=== PATIENT | female | born 1955 | race Caucasian/White ===

== ENCOUNTER 2019-12-21 15:33 | Observation (INO) | payer BC, MEDICARE, OTHER ==
--- NOTE | 2019-12-21 15:49 | EDM.PDOC ---
ED HPI GENERAL MEDICAL PROBLEM - General Chief Complaint: Chest Pain Stated Complaint: CHEST PAIN Time Seen by Provider: 12/21/19 15:49 Source of Information: Reports: Patient History Limitations: Reports: No Limitations - History of Present Illness INITIAL COMMENTS - FREE TEXT/NARRATIVE: This 64 year old female is admitted to the ED with a chief complaint of chest pain (squeezing) in her left chest for the past two days. She states that the pain last for about 60-90 seconds and comes and goes every 15-20 minutes. She denies any SOB or difficulty breathing. She denies any pain into her arms or jaw. No nausea or vomiting. She denies any other symptoms at time of this evaluation. Onset: Gradual (over two days) Duration: Day(s): (two days) Location: Reports: Chest Quality: Reports: Pressure (and tightness) Severity: Mild (to moderate) Associated Symptoms: Reports: Chest Pain. Denies: Diaphoresis, Nausea/Vomiting , Shortness of Breath - Related Data Allergies Allergy/AdvReac Type Severity Reaction Status Date / Time adhesive Allergy Rash Verified 12/21/19 20:26 latex Allergy Rash Verified 12/21/19 20:26 meperidine [From Demerol] Allergy Rash Verified 12/21/19 20:26 Home Meds: Home Meds Enalapril Maleate [Vasotec] 1.5 tab PO BEDTIME 12/21/19 [History] Metoprolol Tartrate 25 mg PO BEDTIME 12/21/19 [History] Potassium Chloride [Klor-Con 10] 10 meq PO BEDTIME 12/21/19 [History] Rosuvastatin [Crestor] 5 mg PO BEDTIME 12/21/19 [History] hydroCHLOROthiazide [Hydrochlorothiazide] 12.5 mg PO BEDTIME 12/21/19 [History] ED ROS GENERAL - Review of Systems Review Of Systems: See Below Constitutional: Reports: No Symptoms HEENT: Reports: No Symptoms Respiratory: Reports: No Symptoms Cardiovascular: Reports: Chest Pain. Denies: Dyspnea on Exertion, Lightheadedness, Orthopnea, Palpitations Endocrine: Reports: No Symptoms GI/Abdominal: Reports: No Symptoms : Reports: No Symptoms Musculoskeletal: Reports: No Symptoms Skin: Reports: No Symptoms Neurological: Reports: No Symptoms Psychiatric: Reports: No Symptoms ED EXAM, GENERAL - Physical Exam Exam: See Below Exam Limited By: No Limitations General Appearance: Alert, WD/WN, No Apparent Distress Nose: Normal Inspection, Normal Mucosa, No Blood Throat/Mouth: Normal Inspection, Normal Lips, Normal Teeth, Normal Gums, Normal Oropharynx, Normal Voice, No Airway Compromise Head: Atraumatic, Normocephalic Neck: Normal Inspection, Supple, Non-Tender, Full Range of Motion. No: Lymphadenopathy (L), Lymphadenopathy (R) Respiratory/Chest: No Respiratory Distress, Lungs Clear, Normal Breath Sounds, Chest Non-Tender Cardiovascular: Normal Peripheral Pulses, Regular Rate, Rhythm, No Edema, No Gallop, No Murmur, No Rub Peripheral Pulses: 3+: Carotid (L), Carotid (R), Radial (L), Radial (R), Dorsalis Pedis (L), Dorsalis Pedis (R) GI/Abdominal: Normal Bowel Sounds, Soft, Non-Tender, No Organomegaly, No Distention, No Abnormal Bruit, No Mass (Female) Exam: Deferred Rectal (Female) Exam: Deferred Back Exam: Normal Inspection, Full Range of Motion. No: CVA Tenderness (L), CVA Tenderness (R) Extremities: Normal Inspection, Normal Range of Motion, Non-Tender, Normal Capillary Refill Neurological: Alert, Oriented (times 4), CN II-XII Intact, Normal Reflexes Psychiatric: Normal Affect, Normal Mood Skin Exam: Warm, Dry, Intact, Normal Color, No Rash Lymphatic: No Adenopathy Course - Vital Signs Text/Narrative:: I discussed with Dr. Harry this patient records. She has a HEART score of 3. She will be admitted to OBS/TELE. The patient agrees with the admission plan. Last Recorded V/S: Last Vital Signs Temp 97.8 F 12/22/19 03:00 Pulse 58 L 12/22/19 03:00 Resp 18 12/22/19 03:00 BP 126/57 L 12/22/19 03:00 Pulse Ox 97 12/22/19 03:00 - Orders/Labs/Meds Orders: Medication Orders Acetaminophen (Tylenol) 650 mg PO Q4H PRN PRN Reason: Pain (Mild 1-3)/fever Aspirin (Aspirin) 81 mg PO DAILY [facility] Last Admin: 12/21/19 20:06 Dose: 81 mg Enalapril Maleate (Vasotec) 30 mg PO DAILY [facility] Last Admin: 12/21/19 22:56 Dose: 30 mg Hydrochlorothiazide (Hydrochlorothiazide) 12.5 mg PO DAILY [facility] Last Admin: 12/21/19 20:09 Dose: 12.5 mg Metoprolol Tartrate (Lopressor) 25 mg PO BEDTIME [facility] Last Admin: 12/21/19 23:02 Dose: Nitroglycerin (Nitrostat) 0.4 mg SL Q5M PRN PRN Reason: Chest Pain Ondansetron HCl (Zofran Odt) 4 mg PO Q4H PRN PRN Reason: nausea, able to take PO Ondansetron HCl (Zofran) 4 mg IVPUSH Q4H PRN PRN Reason: Nausea Potassium Chloride (Klor-Con 10) 10 meq PO BEDTIME [facility] Last Admin: 12/21/19 21:58 Dose: Not Given Rosuvastatin Calcium (Crestor) 5 mg PO DAILY [facility] Last Admin: 12/21/19 22:55 Dose: 5 mg Labs: Laboratory Tests 12/21/19 12/21/19 12/21/19 Range/Units 15:40 15:40 15:40 WBC 9.02 (4.0-11.0) K/uL RBC 4.78 (4.30-5.90) M/uL Hgb 15.3 (12.0-16.0) g/dL Hct 45.1 (36.0-46.0) % MCV 94.4 (80.0-98.0) fL MCH 32.0 (27.0-32.0) pg MCHC 33.9 (31.0-37.0) g/dL RDW Std Deviation 45.2 (28.0-62.0) fl RDW Coeff of Kayla 13 (11.0-15.0) % Plt Count 218 (150-400) K/uL MPV 9.90 (7.40-12.00) fL Neut % (Auto) 59.1 (48.0-80.0) % Lymph % (Auto) 29.6 (16.0-40.0) % [place] % (Auto) 9.8 (0.0-15.0) % Eos % (Auto) 1.2 (0.0-7.0) % Baso % (Auto) 0.3 (0.0-1.5) % Neut # (Auto) 5.3 (1.4-5.7) K/uL Lymph # (Auto) 2.7 H (0.6-2.4) K/uL [place] # (Auto) 0.9 H (0.0-0.8) K/uL Eos # (Auto) 0.1 (0.0-0.7) K/uL Baso # (Auto) 0.0 (0.0-0.1) K/uL Nucleated RBC % 0.0 /100WBC Nucleated RBCs # 0 K/uL Sodium 145 (136-145) mmol/L Potassium 3.1 L (3.5-5.1) mmol/L Chloride 103 (98-107) mmol/L Carbon Dioxide 31.0 (21.0-32.0) mmol/L BUN 15 (7.0-18.0) mg/dL Creatinine 0.9 (0.6-1.0) mg/dL Est Cr Clr Drug Dosing 50.86 mL/min Estimated GFR (MDRD) > 60.0 ml/min Glucose 91 (74-106) mg/dL Calcium 9.6 (8.5-10.1) mg/dL Total Bilirubin 0.6 (0.2-1.0) mg/dL AST 12 L (15-37) IU/L ALT 40 (14-63) IU/L Alkaline Phosphatase 77 (46-116) U/L Troponin I < 0.050 (0.000-0.056) ng/mL B-Natriuretic Peptide 28 (<100) PG/ML Total Protein 7.4 (6.4-8.2) g/dL Albumin 4.3 (3.4-5.0) g/dL Globulin 3.1 (2.6-4.0) g/dL Albumin/Globulin Ratio 1.4 (0.9-1.6) Meds: Medications Generic Name Dose Route Start Last Admin Trade Name Freq PRN Reason Stop Dose Admin Acetaminophen 650 mg 12/21/19 19:09 Tylenol PO Q4H PRN Pain (Mild 1-3)/fever Aspirin 81 mg 12/21/19 19:30 12/21/19 20:06 Aspirin PO 81 mg DAILY KEON Administration Enalapril Maleate 30 mg 12/21/19 22:00 12/21/19 22:56 Vasotec PO 30 mg DAILY KEON Administration Hydrochlorothiazide 12.5 mg 12/21/19 19:15 12/21/19 20:09 Hydrochlorothiazide PO 12.5 mg DAILY KEON Administration Metoprolol Tartrate 25 mg 12/21/19 22:00 12/21/19 23:02 Lopressor PO Not Given BEDTIME EKON Nitroglycerin 0.4 mg 12/21/19 19:13 Nitrostat SL Q5M PRN Chest Pain Ondansetron HCl 4 mg 12/21/19 19:09 Zofran Odt PO Q4H PRN nausea, able to take PO Ondansetron HCl 4 mg 12/21/19 19:09 Zofran IVPUSH Q4H PRN Nausea Potassium Chloride 10 meq 12/21/19 22:00 12/21/19 21:58 Klor-Con 10 PO Not Given BEDTIME KEON Rosuvastatin Calcium 5 mg 12/21/19 22:00 12/21/19 22:55 Crestor PO 5 mg DAILY KEON Administration Discontinued Medications Generic Name Dose Route Start Last Admin Trade Name Freq PRN Reason Stop Dose Admin Potassium Chloride 40 meq 12/21/19 19:11 12/21/19 20:06 Klor-Con M20 PO 12/21/19 19:12 40 meq ONETIME ONE Administration Departure - Departure Time of Disposition: 18:36 Disposition: Refer to Observation Condition: Good Clinical Impression: Chest pain with low risk for cardiac etiology Sepsis Event Note - Focused Exam Date Exam was Performed: 12/22/19 Time Exam was Performed: 07:48
[2019-12-21 16:22] LABS: BLOOD UREA NITROGEN,BUN 15 mg/dL (7.0-18.0); CHLORIDE,CL 103 mmol/L (98-107); GLUCOSE RANDOM 91 mg/dL (74-106); POTASSIUM,K 3.1 mmol/L (3.5-5.1); SODIUM,NA 145 mmol/L (136-145)
--- NOTE | 2019-12-21 16:43 | CR ---
Chest: Frontal view of the chest was obtained. Comparison: Prior chest x-ray of 07/12/07. Heart size is enlarged. Tortuous thoracic aorta is noted. Lungs are clear with no acute parenchymal change. Bony structures appear grossly intact. Impression: 1. Cardiomegaly. 2. Nothing acute is otherwise seen on frontal chest x-ray. Diagnostic code #2 Study was dictated in MDT
[2019-12-21] MEDS ORDERED: Ondansetron 4 MG/2 ML SDV IVPUSH PRN (19:09)
[2019-12-21] MEDS ORDERED: Acetaminophen 325 MG Tab PO PRN (19:09)
[2019-12-21] MEDS ORDERED: Ondansetron 4 MG Tab.DIS PO PRN (19:09)
[2019-12-21] MEDS ORDERED: Potassium Chloride 20 MEQ Tab.ER PO ONE (19:11)
[2019-12-21] MEDS ORDERED: Nitroglycerin 0.4 MG Tab.SL SL PRN (19:13)
--- NOTE | 2019-12-21 19:22 | PCM.HP.2 ---
H&P History of Present Illness - General Date of Service: 12/21/19 Admit Problem/Dx: Admission Diagnosis/Problem Admission Diagnosis/Problem Chest pain with minimal risk for cardiac etiology Source of Information: Patient History Limitations: Reports: No Limitations - History of Present Illness Initial Comments - Free Text/Narative: 64-year-old female presents with left-sided chest pain that is on and off for the past 2-3 weeks. She has a PMH of HTN. She reports the chest pain is "squeezing" and "pressure-like" in nature. For the past 2 days it seems to be getting more frequent. The pain lasts for approximately 1 minute and then resolves completely but will then reoccur every hour. It is not related to exertion and occurs at rest as well. It is also unrelated to eating. The pain does not radiate anywhere. She reports associated flushing. She has also noticed that her blood pressure has been high lately and SBP at home today was ~ 190. She reports being under a lot of stress lately with trying to sell her home. She denies any fevers, chills, blurry vision, sore throat, cough, SOB, dizziness, sweats, nausea, vomiting, diarrhea, abdominal pain, blood in urine, blood in stool, numbness or tingling in extremities. In the ER, EKG, CXR and CBC were unremarkable. CMP revealed potassium level of 3.1. Initial troponin negative. Patient admitted for further evaluation. 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 Musculoskeletal History: tendonitis in both wrists, meniscus repair - Infectious Disease History Infectious Disease History: Reports: Chicken Pox, Measles, Mumps - Past Surgical History HEENT Surgical History: Reports: Cataract Surgery, Naso-Sinus Surgery Female Surgical History: Reports: Hysterectomy Other Female Surgeries/Procedures: bladder repair, urethra repair Social & Family History - Family History Family Medical History: Noncontributory - Tobacco Use Smoking Status *Q: Never Smoker - Recreational Drug Use Recreational Drug Use: No H&P Review of Systems - Review of Systems: Review Of Systems: Comprehensive ROS is negative, except as noted in HPI. Exam - Exam Exam: See Below - Vital Signs Vital Signs: Last Vital Signs Temp 96.5 F L 12/21/19 18:08 Pulse 59 L 12/21/19 17:56 Resp 18 12/21/19 17:56 BP 118/64 12/21/19 17:56 Pulse Ox 96 12/21/19 17:56 Weight: 190 lb - Exam General: Alert, Oriented, Cooperative, Other (NAD) HEENT: Conjunctiva Clear, EOMI, Hearing Intact, Mucosa Moist & [place], Posterior Pharynx Clear, Pupils Equal, Pupils Reactive Neck: Supple, Trachea Midline Lungs: Clear to Auscultation, Normal Respiratory Effort Cardiovascular: Regular Rate, Regular Rhythm GI/Abdominal Exam: Normal Bowel Sounds, Soft, Non-Tender, No Distention Extremities: Normal Inspection, No Pedal Edema Peripheral Pulses: 2+: Radial (L), Radial (R) Skin: Warm, Dry, Intact Neurological: Cranial Nerves Intact, Reflexes Equal Bilateral, Strength Equal Bilateral, Normal Speech, Normal Tone Neuro Extensive - Mental Status: Alert, Oriented x3, Normal Mood/Affect Psychiatric: Alert, Normal Affect, Normal Mood - Patient Data Lab Results Last 24 hrs: Laboratory Results - last 24 hr 12/21/19 12/21/19 12/21/19 Range/Units 15:40 15:40 15:40 WBC 9.02 (4.0-11.0) K/uL RBC 4.78 (4.30-5.90) M/uL Hgb 15.3 (12.0-16.0) g/dL Hct 45.1 (36.0-46.0) % MCV 94.4 (80.0-98.0) fL MCH 32.0 (27.0-32.0) pg MCHC 33.9 (31.0-37.0) g/dL RDW Std Deviation 45.2 (28.0-62.0) fl RDW Coeff of Kayla 13 (11.0-15.0) % Plt Count 218 (150-400) K/uL MPV 9.90 (7.40-12.00) fL Neut % (Auto) 59.1 (48.0-80.0) % Lymph % (Auto) 29.6 (16.0-40.0) % [place] % (Auto) 9.8 (0.0-15.0) % Eos % (Auto) 1.2 (0.0-7.0) % Baso % (Auto) 0.3 (0.0-1.5) % Neut # (Auto) 5.3 (1.4-5.7) K/uL Lymph # (Auto) 2.7 H (0.6-2.4) K/uL [place] # (Auto) 0.9 H (0.0-0.8) K/uL Eos # (Auto) 0.1 (0.0-0.7) K/uL Baso # (Auto) 0.0 (0.0-0.1) K/uL Nucleated RBC % 0.0 /100WBC Nucleated RBCs # 0 K/uL Sodium 145 (136-145) mmol/L Potassium 3.1 L (3.5-5.1) mmol/L Chloride 103 (98-107) mmol/L Carbon Dioxide 31.0 (21.0-32.0) mmol/L BUN 15 (7.0-18.0) mg/dL Creatinine 0.9 (0.6-1.0) mg/dL Est Cr Clr Drug Dosing 50.86 mL/min Estimated GFR (MDRD) > 60.0 ml/min Glucose 91 (74-106) mg/dL Calcium 9.6 (8.5-10.1) mg/dL Total Bilirubin 0.6 (0.2-1.0) mg/dL AST 12 L (15-37) IU/L ALT 40 (14-63) IU/L Alkaline Phosphatase 77 (46-116) U/L Troponin I < 0.050 (0.000-0.056) ng/mL B-Natriuretic Peptide 28 (<100) PG/ML Total Protein 7.4 (6.4-8.2) g/dL Albumin 4.3 (3.4-5.0) g/dL Globulin 3.1 (2.6-4.0) g/dL Albumin/Globulin Ratio 1.4 (0.9-1.6) Result Diagrams: 12/21/19 15:40 12/21/19 15:40 Sepsis Event Note - Evaluation Sepsis Screening Result: No Definite Risk - Focused Exam Vital Signs: Vital Signs Temp Pulse Resp BP Pulse Ox 12/21/19 18:08 96.5 F L 12/21/19 17:56 59 L 18 118/64 96 12/21/19 17:41 57 L 18 133/70 93 L 12/21/19 17:27 59 L 115/58 L 92 L 12/21/19 17:17 96.0 F L 12/21/19 16:56 62 135/82 93 L 12/21/19 16:41 64 162/69 H 12/21/19 16:29 66 163/76 H 93 L 12/21/19 16:11 157/85 H 12/21/19 15:50 97.7 F 82 18 156/99 H 97 Date Exam was Performed: 12/21/19 Time Exam was Performed: 19:28 Problem List Initiated/Reviewed/Updated: Yes Orders Last 24hrs: Active Orders 24 hr Category Date Time Status Admission Status [Patient Status] [ADT] Stat ADT 12/21/19 18:37 Active Antiembolic Devices [RC] PER UNIT ROUTINE Care 12/21/19 19:09 Active Oxygen Therapy [RC] PRN Care 12/21/19 19:09 Active Telemetry Monitoring [Cardiac Monitoring] [RC] . Care 12/21/19 19:11 Active DIRECTED Up ad Jessica [RC] ASDIRECTED Care 12/21/19 19:09 Active VTE/DVT Education [RC] PER UNIT ROUTINE Care 12/21/19 19:09 Active Vital Signs [RC] Q4H Care 12/21/19 19:09 Active Heart Healthy Diet [DIET] Diet 12/21/19 Dinner Active Echo Comp wo Cont [US] Urgent Exams 12/21/19 19:14 Ordered GLYCOSYLATED HEMOGLOBIN,HGBA1C [CHEM] Routine Lab 12/21/19 19:13 Ordered LIPID PANEL [CHEM] Routine Lab 12/21/19 19:12 Ordered MAGNESIUM [CHEM] Routine Lab 12/21/19 19:12 Ordered PHOSPHORUS [CHEM] Routine Lab 12/21/19 19:12 Ordered TROPONIN I [CHEM] Q3H Lab 12/21/19 19:12 Ordered TROPONIN I [CHEM] Q3H Lab 12/21/19 22:12 Ordered TSH [CHEM] Routine Lab 12/21/19 19:12 Ordered Acetaminophen [Tylenol] Med 12/21/19 19:09 Ordered 650 mg PO Q4H PRN Enalapril Maleate [Vasotec] Med 12/21/19 19:15 Ordered 1.5 tab PO DAILY Nitroglycerin [Nitrostat] Med 12/21/19 19:13 Ordered 0.4 mg SL Q5M PRN Ondansetron [Zofran ODT] Med 12/21/19 19:09 Ordered 4 mg PO Q4H PRN Ondansetron [Zofran] Med 12/21/19 19:09 Ordered 4 mg IVPUSH Q4H PRN Potassium Chloride [Klor-Con M20] Med 12/21/19 19:11 Once 40 meq PO ONETIME ONE Rosuvastatin Med 12/21/19 19:15 Ordered 5 mg PO DAILY hydroCHLOROthiazide Med 12/21/19 19:15 Ordered 12.5 mg PO DAILY Sequential Compression Device [OM.PC] Per Unit Routine Oth 12/21/19 19:09 Ordered Resuscitation Status Routine Resus Stat 12/21/19 19:09 Ordered Medication Orders Acetaminophen (Tylenol) 650 mg PO Q4H PRN PRN Reason: Pain (Mild 1-3)/fever Hydrochlorothiazide (Hydrochlorothiazide) 12.5 mg PO DAILY [facility] Nitroglycerin (Nitrostat) 0.4 mg SL Q5M PRN PRN Reason: Chest Pain Non-Formulary Medication (Enalapril Maleate [Vasotec]) 1.5 tab PO DAILY [facility]ON Non-Formulary Medication (Rosuvastatin) 5 mg PO DAILY [facility] Ondansetron HCl (Zofran Odt) 4 mg PO Q4H PRN PRN Reason: nausea, able to take PO Ondansetron HCl (Zofran) 4 mg IVPUSH Q4H PRN PRN Reason: Nausea Potassium Chloride (Klor-Con M20) 40 meq PO ONETIME ONE Stop: 12/21/19 19:12 Assessment/Plan Comment:: Assessment and Plan: 1. Atypical chest pain, ACS rule out: - Admit to med/surg, keep patient on telemetry, trend troponins q3h and order ECHO. Will check magnesium, phosphorus, TSH, lipid panel and HgbA1c. Nitro prn chest pain. Will start aspirin 81 mg qd. 2. Hypokalemia: - Will replete with PO KCl 40 mEq. Will recheck with AM labs. 3. Hypertension: - Resume home medications. 4. DVT prophylaxis: SCD's.
[2019-12-21 19:58] LABS: HEMOGLOBIN A1C 5.9 % (4.5-6.2)
[2019-12-21] MEDS: Aspirin 81 MG Tab.Chew PO SCH (20:06)
[2019-12-21] MEDS: Hydrochlorothiazide 25 MG Tab PO SCH (20:09)
[2019-12-21] MEDS ORDERED: Potassium Chloride 10 MEQ Tab.ER PO SCH (22:00)
[2019-12-21] MEDS ORDERED: Metoprolol Tartrate 25 MG Tab PO SCH (22:00)
[2019-12-21] MEDS: Rosuvastatin 10 MG Tab PO SCH (22:55)
[2019-12-22 06:58] LABS: CARBON DIOXIDE,CO2 33.1 mmol/L (21.0-32.0); POTASSIUM,K 4.3 mmol/L (3.5-5.1)
[2019-12-22] MEDS: Aspirin 81 MG Tab.Chew PO SCH (09:48)
[2019-12-22] MEDS: Rosuvastatin 10 MG Tab PO SCH (09:49)
[2019-12-22] MEDS: Hydrochlorothiazide 25 MG Tab PO SCH (09:50)
--- NOTE | 2019-12-22 10:59 | PCM.DCSUM1 ---
Discharge Summary - Hospital Course Free Text/Narrative:: 64-year-old female admitted for atypical chest pain and ACS rule out. She has a PMH of HTN. Patient was on telemetry and noted to have very brief periods of sinus bradycardia. Troponins were trended and negative. ECHO ordered and currently pending. Patient remained stable throughout her hospitalization. Patient metoprolol tartrate was discontinued and started on metoprolol succinate 25 mg qd. Patient also started on aspirin 81 mg qd. All of her other medications were resumed. Script provided for outpatient stress test on discharge and results to be sent to PCP Dr. Souza. Advised to follow-up with PCP on discharge. Assistant Coach appointment also made prior to discharge. - Discharge Data Discharge Date: 12/22/19 Discharge Disposition: Home, Self-Care 01 Condition: Stable - Referral to Home Health Primary Care Physician: PCP Unobtainable - Patient Instructions Diet: Heart Healthy Diet Activity: As Tolerated Notify Provider of: Fever, Increased Pain, Swelling and Redness, Drainage, Nausea and/or Vomiting - Discharge Plan *PRESCRIPTION DRUG MONITORING PROGRAM REVIEWED*: Not Applicable *COPY OF PRESCRIPTION DRUG MONITORING REPORT IN PATIENT CHIARA: Not Applicable Prescriptions/Med Rec: Aspirin 81 mg PO DAILY 30 Days #30 tab.chew Enalapril Maleate 30 mg PO DAILY 30 Days #45 tablet Metoprolol Succinate 25 mg PO DAILY 30 Days #30 tab.er.24h Home Medications: Home Meds Potassium Chloride [Klor-Con 10] 10 meq PO BEDTIME 12/21/19 [History] Rosuvastatin [Crestor] 5 mg PO BEDTIME 12/21/19 [History] hydroCHLOROthiazide [Hydrochlorothiazide] 12.5 mg PO BEDTIME 12/21/19 [History] Aspirin 81 mg PO DAILY 30 Days #30 tab.chew 12/22/19 [Rx] Enalapril Maleate 30 mg PO DAILY 30 Days #45 tablet 12/22/19 [Rx] Metoprolol Succinate 25 mg PO DAILY 30 Days #30 tab.er.24h 12/22/19 [Rx] Oxygen Therapy Mode: Room Air Patient Handouts: Metoprolol tablets, Enalapril tablets, Nonspecific Chest Pain , Adult, [id number], Aspirin capsules or tablets extended release Referrals: Sydney Souza DO [Ordering Only Provider] - 01/08/20 10:45 am - Discharge Summary/Plan Comment DC Time >30 min.: No - Patient Data Vitals - Most Recent: Last Vital Signs Temp 97.2 F 12/22/19 07:00 Pulse 60 12/22/19 07:00 Resp 14 12/22/19 07:00 BP 124/82 12/22/19 07:00 Pulse Ox 96 12/22/19 07:00 Weight - Most Recent: 188 lb 14.4 oz I&O - Last 24 hours: Intake & Output 12/21/19 12/22/19 12/22/19 22:59 06:59 14:59 Intake Total 700 Output Total 600 Balance 100 Lab Results - Last 24 hrs: Laboratory Results - last 24 hr 12/21/19 12/21/19 12/21/19 Range/Units 15:40 15:40 15:40 WBC 9.02 (4.0-11.0) K/uL RBC 4.78 (4.30-5.90) M/uL Hgb 15.3 (12.0-16.0) g/dL Hct 45.1 (36.0-46.0) % MCV 94.4 (80.0-98.0) fL MCH 32.0 (27.0-32.0) pg MCHC 33.9 (31.0-37.0) g/dL RDW Std Deviation 45.2 (28.0-62.0) fl RDW Coeff of Kayla 13 (11.0-15.0) % Plt Count 218 (150-400) K/uL MPV 9.90 (7.40-12.00) fL Neut % (Auto) 59.1 (48.0-80.0) % Lymph % (Auto) 29.6 (16.0-40.0) % [place] % (Auto) 9.8 (0.0-15.0) % Eos % (Auto) 1.2 (0.0-7.0) % Baso % (Auto) 0.3 (0.0-1.5) % Neut # (Auto) 5.3 (1.4-5.7) K/uL Lymph # (Auto) 2.7 H (0.6-2.4) K/uL [place] # (Auto) 0.9 H (0.0-0.8) K/uL Eos # (Auto) 0.1 (0.0-0.7) K/uL Baso # (Auto) 0.0 (0.0-0.1) K/uL Nucleated RBC % 0.0 /100WBC Nucleated RBCs # 0 K/uL Sodium 145 (136-145) mmol/L Potassium 3.1 L (3.5-5.1) mmol/L Chloride 103 (98-107) mmol/L Carbon Dioxide 31.0 (21.0-32.0) mmol/L BUN 15 (7.0-18.0) mg/dL Creatinine 0.9 (0.6-1.0) mg/dL Est Cr Clr Drug Dosing 50.86 mL/min Estimated GFR (MDRD) > 60.0 ml/min Glucose 91 (74-106) mg/dL Hemoglobin A1c (4.5-6.2) % Calcium 9.6 (8.5-10.1) mg/dL Phosphorus (2.6-4.7) mg/dL Magnesium (1.8-2.4) mg/dL Total Bilirubin 0.6 (0.2-1.0) mg/dL AST 12 L (15-37) IU/L ALT 40 (14-63) IU/L Alkaline Phosphatase 77 (46-116) U/L Troponin I < 0.050 (0.000-0.056) ng/mL B-Natriuretic Peptide 28 (<100) PG/ML Total Protein 7.4 (6.4-8.2) g/dL Albumin 4.3 (3.4-5.0) g/dL Globulin 3.1 (2.6-4.0) g/dL Albumin/Globulin Ratio 1.4 (0.9-1.6) Triglycerides (0-200) mg/dL Cholesterol (50-200) mg/dL LDL Cholesterol, Calc (60-180) mg/dL VLDL Cholesterol (5-55) mg/dL HDL Cholesterol (40-60) mg/dL Cholesterol/HDL Ratio (3.3-6.0) TSH 3rd Generation (0.36-3.74) uIU/mL 12/21/19 12/21/19 12/21/19 Range/Units 19:37 19:37 22:14 WBC (4.0-11.0) K/uL RBC (4.30-5.90) M/uL Hgb (12.0-16.0) g/dL Hct (36.0-46.0) % MCV (80.0-98.0) fL MCH (27.0-32.0) pg MCHC (31.0-37.0) g/dL RDW Std Deviation (28.0-62.0) fl RDW Coeff of Kayla (11.0-15.0) % Plt Count (150-400) K/uL MPV (7.40-12.00) fL Neut % (Auto) (48.0-80.0) % Lymph % (Auto) (16.0-40.0) % [place] % (Auto) (0.0-15.0) % Eos % (Auto) (0.0-7.0) % Baso % (Auto) (0.0-1.5) % Neut # (Auto) (1.4-5.7) K/uL Lymph # (Auto) (0.6-2.4) K/uL [place] # (Auto) (0.0-0.8) K/uL Eos # (Auto) (0.0-0.7) K/uL Baso # (Auto) (0.0-0.1) K/uL Nucleated RBC % /100WBC Nucleated RBCs # K/uL Sodium (136-145) mmol/L Potassium (3.5-5.1) mmol/L Chloride (98-107) mmol/L Carbon Dioxide (21.0-32.0) mmol/L BUN (7.0-18.0) mg/dL Creatinine (0.6-1.0) mg/dL Est Cr Clr Drug Dosing mL/min Estimated GFR (MDRD) ml/min Glucose (74-106) mg/dL Hemoglobin A1c 5.9 (4.5-6.2) % Calcium (8.5-10.1) mg/dL Phosphorus 4.1 (2.6-4.7) mg/dL Magnesium 2.0 (1.8-2.4) mg/dL Total Bilirubin (0.2-1.0) mg/dL AST (15-37) IU/L ALT (14-63) IU/L Alkaline Phosphatase (46-116) U/L Troponin I < 0.050 < 0.050 (0.000-0.056) ng/mL B-Natriuretic Peptide (<100) PG/ML Total Protein (6.4-8.2) g/dL Albumin (3.4-5.0) g/dL Globulin (2.6-4.0) g/dL Albumin/Globulin Ratio (0.9-1.6) Triglycerides 182 (0-200) mg/dL Cholesterol 146 (50-200) mg/dL LDL Cholesterol, Calc 69 (60-180) mg/dL VLDL Cholesterol 36 (5-55) mg/dL HDL Cholesterol 41 (40-60) mg/dL Cholesterol/HDL Ratio 3.6 (3.3-6.0) TSH 3rd Generation 0.97 (0.36-3.74) uIU/mL 12/22/19 12/22/19 Range/Units 06:17 06:17 WBC 6.44 (4.0-11.0) K/uL RBC 4.32 (4.30-5.90) M/uL Hgb 13.6 (12.0-16.0) g/dL Hct 41.3 (36.0-46.0) % MCV 95.6 (80.0-98.0) fL MCH 31.5 (27.0-32.0) pg MCHC 32.9 (31.0-37.0) g/dL RDW Std Deviation 46.1 (28.0-62.0) fl RDW Coeff of Kayla 13 (11.0-15.0) % Plt Count 177 (150-400) K/uL MPV 9.30 (7.40-12.00) fL Neut % (Auto) 55.1 (48.0-80.0) % Lymph % (Auto) 33.2 (16.0-40.0) % [place] % (Auto) 9.5 (0.0-15.0) % Eos % (Auto) 1.9 (0.0-7.0) % Baso % (Auto) 0.3 (0.0-1.5) % Neut # (Auto) 3.6 (1.4-5.7) K/uL Lymph # (Auto) 2.1 (0.6-2.4) K/uL [place] # (Auto) 0.6 (0.0-0.8) K/uL Eos # (Auto) 0.1 (0.0-0.7) K/uL Baso # (Auto) 0.0 (0.0-0.1) K/uL Nucleated RBC % 0.0 /100WBC Nucleated RBCs # 0 K/uL Sodium 145 (136-145) mmol/L Potassium 4.3 (3.5-5.1) mmol/L Chloride 107 (98-107) mmol/L Carbon Dioxide 33.1 H (21.0-32.0) mmol/L BUN 15 (7.0-18.0) mg/dL Creatinine 1.0 (0.6-1.0) mg/dL Est Cr Clr Drug Dosing 45.78 mL/min Estimated GFR (MDRD) 55.5 ml/min Glucose 128 H (74-106) mg/dL Hemoglobin A1c (4.5-6.2) % Calcium 9.0 (8.5-10.1) mg/dL Phosphorus (2.6-4.7) mg/dL Magnesium (1.8-2.4) mg/dL Total Bilirubin 0.5 (0.2-1.0) mg/dL AST 11 L (15-37) IU/L ALT 37 (14-63) IU/L Alkaline Phosphatase 60 (46-116) U/L Troponin I (0.000-0.056) ng/mL B-Natriuretic Peptide (<100) PG/ML Total Protein 6.3 L (6.4-8.2) g/dL Albumin 3.6 (3.4-5.0) g/dL Globulin 2.7 (2.6-4.0) g/dL Albumin/Globulin Ratio 1.3 (0.9-1.6) Triglycerides (0-200) mg/dL Cholesterol (50-200) mg/dL LDL Cholesterol, Calc (60-180) mg/dL VLDL Cholesterol (5-55) mg/dL HDL Cholesterol (40-60) mg/dL Cholesterol/HDL Ratio (3.3-6.0) TSH 3rd Generation (0.36-3.74) uIU/mL Med Orders - Current: Current Medications Acetaminophen (Tylenol) 650 mg PO Q4H PRN PRN Reason: Pain (Mild 1-3)/fever Aspirin (Aspirin) 81 mg PO DAILY [facility]ON Last Admin: 12/22/19 09:48 Dose: 81 mg Enalapril Maleate (Vasotec) 30 mg PO DAILY [facility] Last Admin: 12/22/19 09:50 Dose: Not Given Hydrochlorothiazide (Hydrochlorothiazide) 12.5 mg PO DAILY [facility] Last Admin: 12/22/19 09:50 Dose: Not Given Metoprolol Tartrate (Lopressor) 25 mg PO BEDTIME [facility] Last Admin: 12/21/19 23:02 Dose: Not Given Nitroglycerin (Nitrostat) 0.4 mg SL Q5M PRN PRN Reason: Chest Pain Ondansetron HCl (Zofran Odt) 4 mg PO Q4H PRN PRN Reason: nausea, able to take PO Ondansetron HCl (Zofran) 4 mg IVPUSH Q4H PRN PRN Reason: Nausea Potassium Chloride (Klor-Con 10) 10 meq PO BEDTIME [facility] Last Admin: 12/21/19 21:58 Dose: Not Given Rosuvastatin Calcium (Crestor) 5 mg PO DAILY [facility] Last Admin: 12/22/19 09:49 Dose: Not Given Discontinued Medications Potassium Chloride (Klor-Con M20) 40 meq PO ONETIME ONE Stop: 12/21/19 19:12 Last Admin: 12/21/19 20:06 Dose: 40 meq
--- NOTE | 2019-12-26 16:34 | ECHO ---
The echocardiogram report can be seen in this patient's EMR (Electronic Medical Record) in the REPORTS section. The echocardiogram report has also been scanned into PACS and can be seen there as well. [email or web address]
== END 2019-12-22 13:45 | disposition home or self-care (01) ==
LOC: MW.ED 15:33 → MW.MS 18:37
PROVIDERS: ADMIT Student in an Organized Health Care Education/Training Program; ATTEND Student in an Organized Health Care Education/Training Program
DX: R07.89 Other chest pain (principal); I10 Essential (primary) hypertension; E87.6 Hypokalemia; Z91.040 Latex allergy status; Z91.048 Other nonmedicinal substance allergy status; Z88.5 Allergy status to narcotic agent; Z79.82 Long term (current) use of aspirin; Z79.899 Other long term (current) drug therapy
CPT/HCPCS: 36415; 71045; 80053; 80061; 83036; 83735; 83880; 84100; 84443; 84484; 85025; 93005; 93306; 99285; A9270; G0378